=== PATIENT | male | born 1945 | race Caucasian/White ===

== ENCOUNTER 2018-07-01 00:39 | Observation (INO) ==
[2018-07-01] MEDS ORDERED: Aspirin 81 MG TAB.CHEW PO ONE (00:52)
--- NOTE | 2018-07-01 01:16 | Emergency Department Note ---
Disposition Clinical Impression: Chest tightness Disposition: Still a Patient Condition: Fair Time of Disposition: 02:34 Chest Pain HPI - General Chief Complaint: ED Chest Pain Stated Complaint: chest pain Time Seen by Provider: 07/01/18 00:51 Source: patient Limitations: no limitations Vital Signs Reviewed: Yes Nursing Notes Reviewed: Yes - History of Present Illness HPI Narrative: 73-year-old male presents from home with family bedside for evaluation of chest tightness. Described as midsternal. Onset this evening at 20:00. Reminiscent to his prior heart attack years ago. Chest pain is minimal at this time. Improved with belching and improved after 324 mg aspirin. Unchanged with exertion or with rest. His pain is nonradiating. He has no associated nausea or vomiting. He did have some mild dyspnea unchanged with exertion. No diaphoresis. PMH: Hypertension, hyperlipidemia, CAD with ACS status post stent 11 years ago. He has had no recent cardiac testing. Habits: current everyday smoker. ROS: Positive: Chest tightness, shortness of breath Negative: Fever, chills, nausea, vomiting, palpitations, dyspnea, diaphoresis, unusual back pain, cough Severity scale (1-10): 3 - Related Data Home Medications Medication Instructions Recorded Confirmed Alprazolam [Xanax] 0.25 mg PO TID 10/05/14 07/01/18 Aspirin Enteric Coated [Aspirin EC] 81 mg PO QAM 10/05/14 07/01/18 Clopidogrel [Plavix] 75 mg PO QAM 10/05/14 07/01/18 Lansoprazole [Prevacid] 30 mg PO DAILY 10/05/14 07/01/18 Lisinopril [Zestril] 20 mg PO QAM 10/05/14 07/01/18 Metoprolol [Lopressor] 50 mg PO BID 10/05/14 07/01/18 Pravastatin Sodium [Pravachol] 40 mg PO QPM 10/05/14 07/01/18 Allergies Allergy/AdvReac Type Severity Reaction Status Date / Time No Known Allergies Allergy Verified 03/29/17 07:22 All systems ED: reviewed and negative except as stated. Review of Systems: As Per HPI Chest Pain PMH - Past Medical History Medical history: Reports: coronary artery disease, GERD, myocardial infarction, other Surgical history: Reports: no surgical history Psychiatric history: Reports: no psych history - Social History Smoking Status: Current every day smoker Alcohol use: Reports: rarely Drug use: Reports: none Physical Exam Vital Signs Reviewed General: Patient is alert, oriented, and in no acute distress. Head: atraumatic, normocephalic Eye: normal appearance, PERRL, EOMI, no scleral icterus, no conjunctival inj ection ENT: mucous membranes moist, normal external ear exam Neck: normal inspection, trachea midline, full ROM Chest: normal inspection, symmetric chest rise Respiratory: Good respiratory effort. Bilateral breath sounds are clear without wheezing, crackles, or rhonchi. Cardiovascular: Regular rate and rhythm. No clicks, rubs, gallops, or murmors. Normal heart sounds. Radial pulses 2/4 and equal bilaterally. No pedal edema.. Nontender to palpation. Abdomen: Bowel sounds present normoactive. Abdomen is soft, nondistended, and nontender. No guarding or rebound. No organomegaly noted. Musculoskeletal: Spontaneously moving all extremities. Skin: warm, dry, intact. Neuro: GCS 15. No focal neurologic deficits observed. Psych: Patient's affect is appropriate for situation. - General Limitations: no limitations General appearance: alert, in no apparent distress Course Course Narrative: EKG dated 01 jul 2018 at 00:48 interpreted as sinus rhythm with rate of 81. MS 135, QRS 84, QTc 423. Normal axis. Nonspecific ST-T changes. Compared to previous dated 03/26/2017 showing no acute ischemic changes or comparison. Chest x-ray is unremarkable. EKG shows no acute ischemic changes. Lab work is unremarkable. Heart score 5. Concerned as patient's symptoms feel identical to his previous heart attack. He is agreeable to admission for continued evaluation. I discussed the patient with the admitting hospitalist, Dr. Stacy, who agrees to accept the patient for continued evaluation monitoring. Chest X-Ray 07/01/18 00:52 IMPRESSION: No acute cardiopulmonary abnormality. D/ / Valentino Whitmore MD / Valentino Whitmore MD Interpreting Provider: Valentino Whitmore MD Vital Signs Temperature 98.1 F 07/01/18 00:42 Pulse Rate 90 07/01/18 00:42 Respiratory Rate 16 07/01/18 00:42 Blood Pressure 167/76 07/01/18 00:42 O2 Sat by Pulse Oximetry 97 07/01/18 00:42 Temperature 98.1 F 07/01/18 00:42 Pulse Rate 74 07/01/18 03:22 Respiratory Rate 18 07/01/18 03:22 Blood Pressure 123/74 07/01/18 03:22 O2 Sat by Pulse Oximetry 95 07/01/18 03:22 Oxygen Delivery Oxygen Delivery Room Air Chest Pain - Lab Data Result diagrams: 07/01/18 08:26 07/01/18 08:26 Lab Results 07/01/18 07/01/18 07/01/18 Range/Units 01:05 01:05 01:05 WBC 13.3 H (4.3-11.1) K/mcL RBC 5.57 H (4.19-5.50) M/mcL Hgb 12.9 (12.9-16.9) g/dL Hct 41.4 (37.5-50.1) % MCV 74.3 L (83.0-100.0) fL MCH 23.2 L (28.0-33.3) pg MCHC 31.2 L (31.6-35.5) g/dL RDW 20.3 H (11.5-14.5) % Plt Count 289 (140-400) K/mcL MPV 9.7 (9.4-12.4) fL Immature Gran % 0.4 (0-4) % Seg Neutrophils % 64.1 % Lymphocytes % 19.9 % Monocytes % 10.7 % Eosinophils % 4.1 % Basophils % 0.8 % Neutrophils # 8.5 (1.6-8.9) K/mcL Lymphocytes # 2.7 (0.6-4.6) K/mcL Monocytes # 1.4 H (0.0-1.3) K/mcL Eosinophils # 0.6 (0.0-0.6) K/mcL Basophils # 0.1 (0.0-0.2) K/mcL PT 11.9 (9.4-12.1) Seconds INR 1.1 APTT 28.0 (26.0-36.0) Seconds Sodium 139 (136-145) mEq/L Potassium 4.0 (3.5-5.1) mEq/L Chloride 104 (98-107) mEq/L Carbon Dioxide 23 (23-29) mEq/L BUN 20 (8-23) mg/dL Creatinine 1.34 H (0.70-1.30) mg/dL Est GFR ( Amer) > 60 (> 60) Est GFR (Non-Af Amer) 52 L (> 60) BUN/Creatinine Ratio 15 (6-26) Glucose 123 H (70-105) mg/dL Calculated Osmolality 292 (280-300) Calcium 9.3 (8.6-10.3) mg/dL Troponin I < 0.03 (< 0.04) ng/mL Urine Color (Yellow) Urine Clarity (Clear) Urine pH (5.0-8.0) pH Units Ur Specific [place] (1.010-1.025) Urine Protein (Neg-Trace) mg/dL Urine Glucose (UA) (Normal) mg/dL Urine Ketones (Negative) mg/dL Urine Blood (Negative) Urine Nitrite (Negative) Urine Bilirubin (Negative) Urine Urobilinogen (Normal) mg/dL Ur Leukocyte Esterase (Negative) Urine Microscopic RBC (0-3) per hpf Urine Microscopic WBC (0-3) per hpf Ur Squamous Epith Cells (None-Few) per lpf Urine Bacteria (None-Few) per hpf Hyaline Casts (None-Few) per lpf Ur Culture Indicated? (NO) 07/01/18 Range/Units 02:20 WBC (4.3-11.1) K/mcL RBC (4.19-5.50) M/mcL Hgb (12.9-16.9) g/dL Hct (37.5-50.1) % MCV (83.0-100.0) fL MCH (28.0-33.3) pg MCHC (31.6-35.5) g/dL RDW (11.5-14.5) % Plt Count (140-400) K/mcL MPV (9.4-12.4) fL Immature Gran % (0-4) % Seg Neutrophils % % Lymphocytes % % Monocytes % % Eosinophils % % Basophils % % Neutrophils # (1.6-8.9) K/mcL Lymphocytes # (0.6-4.6) K/mcL Monocytes # (0.0-1.3) K/mcL Eosinophils # (0.0-0.6) K/mcL Basophils # (0.0-0.2) K/mcL PT (9.4-12.1) Seconds INR APTT (26.0-36.0) Seconds Sodium (136-145) mEq/L Potassium (3.5-5.1) mEq/L Chloride (98-107) mEq/L Carbon Dioxide (23-29) mEq/L BUN (8-23) mg/dL Creatinine (0.70-1.30) mg/dL Est GFR ( Amer) (> 60) Est GFR (Non-Af Amer) (> 60) BUN/Creatinine Ratio (6-26) Glucose (70-105) mg/dL Calculated Osmolality (280-300) Calcium (8.6-10.3) mg/dL Troponin I (< 0.04) ng/mL Urine Color Yellow (Yellow) Urine Clarity Cloudy A (Clear) Urine pH 6.0 (5.0-8.0) pH Units Ur Specific [place] 1.014 (1.010-1.025) Urine Protein Trace (Neg-Trace) mg/dL Urine Glucose (UA) Normal (Normal) mg/dL Urine Ketones Trace H (Negative) mg/dL Urine Blood Negative (Negative) Urine Nitrite Negative (Negative) Urine Bilirubin Negative (Negative) Urine Urobilinogen Normal (Normal) mg/dL Ur Leukocyte Esterase Negative (Negative) Urine Microscopic RBC 5-15 H (0-3) per hpf Urine Microscopic WBC 5-15 H (0-3) per hpf Ur Squamous Epith Cells Many H (None-Few) per lpf Urine Bacteria None Seen (None-Few) per hpf Hyaline Casts Few (None-Few) per lpf Ur Culture Indicated? YES A (NO) Heart Score - Score History: Slightly Suspicious EKG: Non Specific repolarisation Disturbance Age: Greater than 65 Risk Factors: Equal/Greater than 3 risk factor or history of atherosclerotic disease Troponin: Less than normal limit HEART Score Total: 5 Attestation Statement - Attestation Attestation: Dr. Butcher note: Patient seen in conjunction with emergency medicine resident Dr. Augie Green. Please see his charting for complete documentation. I spent [id number] time with the patient and agree with patient's treatment and disposition. Patient has no pain at the time of my evaluation but had chest pain at rest within the last couple hours described as diffuse chest tightness that did not radiate. He had no jaw pain or arm pain. The last time he had a pain like this for patient was in approximately 2007 at the time of his last heart attack at which time he had stents placed. EKG and blood work understandable unremarkable. Patient admitted pain-free and has been given aspirin. No acute injury pattern noted on EKG.
[2018-07-01 01:26] LABS: INR 1.1; Prothrombin Time 11.9 Seconds (9.4-12.1)
[2018-07-01 01:27] LABS: Basophils # 0.1 K/mcL (0.0-0.2); Basophils % 0.8 %; Eosinophils # 0.6 K/mcL (0.0-0.6); Eosinophils % 4.1 %; Hematocrit 41.4 % (37.5-50.1); Hemoglobin 12.9 g/dL (12.9-16.9); Immature Granulocytes % 0.4 % (0-4); Lymphocytes # 2.7 K/mcL (0.6-4.6); Lymphocytes % 19.9 %; Mean Corpuscular HGB Conc 31.2 g/dL (31.6-35.5); Mean Corpuscular Hemoglobin 23.2 pg (28.0-33.3); Mean Corpuscular Volume 74.3 fL (83.0-100.0); Mean Platelet Volume 9.7 fL (9.4-12.4); Monocytes # 1.4 K/mcL (0.0-1.3); Monocytes % 10.7 %; Neutrophils # 8.5 K/mcL (1.6-8.9); Platelet Count 289 K/mcL (140-400); Red Blood Count 5.57 M/mcL (4.19-5.50); Red Cell Distribution Width 20.3 % (11.5-14.5); Segmented Neutrophils % 64.1 %
[2018-07-01 01:38] LABS: BUN/Creatinine Ratio 15 (6-26); Blood Urea Nitrogen 20 mg/dL (8-23); Calcium 9.3 mg/dL (8.6-10.3); Carbon Dioxide 23 mEq/L (23-29); Chloride 104 mEq/L (98-107); Glucose 123 mg/dL (70-105); Osmolality,Calculated 292 (280-300); Sodium 139 mEq/L (136-145); eGFR For Non-African Americans 52 (> 60)
[2018-07-01 01:39] LABS: Troponin I < 0.03 ng/mL (< 0.04)
[2018-07-01 02:35] LABS: Bilirubin,Urine Negative (Negative); Blood,Urine Negative (Negative); Clarity,Urine Cloudy (Clear); Color,Urine Yellow (Yellow); Glucose,Urine (UA) Normal (Normal); Ketones,Urine Trace mg/dL (Negative); Leukocyte Esterase,Urine Negative (Negative); Nitrite,Urine Negative (Negative); Protein,Urine Trace mg/dL (Neg-Trace); Specific Gravity,Urine 1.014 (1.010-1.025); Urobilinogen,Urine Normal (Normal)
[2018-07-01 02:38] LABS: Bacteria,Urine None Seen per hpf (None-Few); Squamous Epithelial Cell,Urine Many per lpf (None-Few)
[2018-07-01] MEDS ORDERED: 0.9 % Sodium Chloride 500 ML IVC ONE (02:52)
[2018-07-01 03:19] LABS: Hyaline Casts,Urine Few per lpf (None-Few)
[2018-07-01] MEDS ORDERED: Naloxone 0.4 MG/ML INJ IVP PRN (05:31)
--- NOTE | 2018-07-01 05:54 | Internal Med History&Physical ---
<PeterAugie Trev - Last Filed: 07/01/18 06:40> Date of Encounter: 07/01/18 Internal Medicine - H&P: HPI History of present illness: Mr. Garzon is a 73 year old male Internal Medicine - H&P: Meds Alprazolam [Xanax] 0.25 mg PO TID 10/05/14 [History] Aspirin Enteric Coated [Aspirin EC] 81 mg PO QAM 10/05/14 [History] Clopidogrel [Plavix] 75 mg PO QAM 10/05/14 [History] Lansoprazole [Prevacid] 30 mg PO DAILY 10/05/14 [History] Lisinopril [Zestril] 20 mg PO QAM 10/05/14 [History] Metoprolol [Lopressor] 50 mg PO BID 10/05/14 [History] Pravastatin Sodium [Pravachol] 40 mg PO QPM 10/05/14 [History] Allergy/AdvReac Type Severity Reaction Status Date / Time No Known Allergies Allergy Verified 03/29/17 07:22 All Systems PM: A 10-system review of systems was performed and is negative for pertinent findings except as documented above in the HPI. - Constitutional Vitals: Temp Pulse Resp BP Pulse Ox 98.1 F 74 18 123/74 95 07/01/18 00:42 07/01/18 03:22 07/01/18 03:22 07/01/18 03:22 07/01/18 03:22 Internal Med - H&P Results - Labs CBC & Chem 7: 07/01/18 01:05 07/01/18 01:05 Labs: Short CBC 07/01/18 Range/Units 01:05 WBC 13.3 H (4.3-11.1) K/mcL Hgb 12.9 (12.9-16.9) g/dL Hct 41.4 (37.5-50.1) % Plt Count 289 (140-400) K/mcL Neutrophils # 8.5 (1.6-8.9) K/mcL BMP 07/01/18 01:05 Sodium 139 Potassium 4.0 Chloride 104 Carbon Dioxide 23 BUN 20 Creatinine 1.34 H Glucose 123 H Calcium 9.3 Cardiac Enzymes 07/01/18 Range/Units 01:05 Troponin I < 0.03 (< 0.04) ng/mL Urine 07/01/18 Range/Units 02:20 Urine Color Yellow (Yellow) Urine Clarity Cloudy A (Clear) Urine pH 6.0 (5.0-8.0) pH Units Ur Specific [place] 1.014 (1.010-1.025) Urine Protein Trace (Neg-Trace) mg/dL Urine Glucose (UA) Normal (Normal) mg/dL - Impressions ITS Impressions Chest X-Ray 07/01/18 00:52 IMPRESSION: No acute cardiopulmonary abnormality. D/ / Valentino Whitmore MD / Valentino Whitmore MD Interpreting Provider: Valentino Whitmore MD - Time Spent With Patient Total time spent is greater than 50% in coordination of care (as documented) at patient's floor/unit and/or counseling patient: <Geni Stacy - Last Filed: 07/01/18 07:46> Date of Encounter: 07/01/18 Time of Encounter: 05:46 Internal Medicine - H&P: HPI Chief complaint: Chest pain History of present illness: Mr. Garzon is a 73 year old male with a past medical history of coronary artery disease, [place] status post stent placement, GERD and hypertension who presented to the ED with chief complaint of chest pain. Patient states that around 8:30 this evening while playing cards he developed acute sudden onset substernal nonradiating chest pain described as a pressure-like sensation. Patient reports that symptoms were similar to when he had his previous AZ in 2007. Symptoms lasted for approximately 2-1/2 hours and resolved just prior to arrival to the hospital. No associated shortness of breath, nausea, vomiting, diaphoresis or lightheadedness. Patient did report that he had just gotten back with his family from [place] prior. Patient continues to smoke a pack a day since his heart attack. No reports of fever, chills, shortness of breath, abdominal pain or diarrhea. On arrival vitals were stable. Patient received loading dose of aspirin in route. Laboratory workup was notable for a leukocytosis of 13.3 and creatinine of 1.34 which is above his baseline. On my assessment patient was lying in bed in no acute distress and chest pain-free. States he is feeling fine. Past Med Surg Social Fam HX - Past Medical History Medical history: coronary artery disease, myocardial infarction, other Additional medical history: cardiac stent Psychiatric history: no psych history - Past Surgical History Surgical History: orthopedic, other Additional surgical history: 2008 cardiac stentHOULDER SX - LEFT - Social History Smoking Status: Current every day smoker Packs per day: 1 Smokeless Tobacco Status: No Alcohol use: rarely Drug use: none - Family History Mother Hx Family Cancer: Yes (Colon CA) All Systems PM: A 10-system review of systems was performed and is negative for pertinent findings except as documented above in the HPI. - Constitutional Constitutional: no chills, no fever(s), no night sweats - EENT Eyes: no change in vision, no discharge, no pain, no photophobia Ears: no ear discharge, no ear pain, no tinnitus Nose, mouth and throat: no dysphagia, no nasal discharge, no neck pain, no sore throat - Cardiovascular Cardiovascular ROS IM: no chest pain, no diaphoresis, no dyspnea, no lightheadedness, no palpitations, no syncope - Respiratory Respiratory: no cough, no dyspnea, no wheezing, no excessive phlegm production - Gastrointestinal Gastrointestinal: no abdominal pain, no diarrhea, no hematemesis, no hematochezia, no melena, no nausea, no vomiting - Musculoskeletal Musculoskeletal ROS IM: no numbness, no tingling - Integumentary Integumentary IM: no rash, no unusual bruising - Neurological Neurological ROS: no confusion, no convulsions, no focal weakness, no numbness, no tingling, no tremor(s) - Hematologic/Lymphatic Hematologic/Lymphatic: no easy bruising - Constitutional Vitals: Temp Pulse Resp BP Pulse Ox 98.1 F 74 18 123/74 95 07/01/18 00:42 07/01/18 03:22 07/01/18 03:22 07/01/18 03:22 07/01/18 03:22 Exam: General: Alert and oriented Skin:Normal color, no rash, no lesions. HEENT:EOM, pupils equal, round and reactive. Cardiovascular:Normal S1 & S2, no rubs, murmurs or gallops. No JVD. Pulse regular. Lungs:Normal breath sounds, no wheezes or crackles. Abdomen:Soft, non-tender, no rigidity. Extremities:No deformity, no edema or tenderness, no joint swelling or clubbing. Neurological:Normal cognition and motor skills. Pulses:Carotid and radial pulses normal +2. Rest of the physical exam is non contributory Internal Med - H&P Results - Labs CBC & Chem 7: 07/01/18 01:05 07/01/18 01:05 Labs: Short CBC 07/01/18 Range/Units 01:05 WBC 13.3 H (4.3-11.1) K/mcL Hgb 12.9 (12.9-16.9) g/dL Hct 41.4 (37.5-50.1) % Plt Count 289 (140-400) K/mcL Neutrophils # 8.5 (1.6-8.9) K/mcL BMP 07/01/18 01:05 Sodium 139 Potassium 4.0 Chloride 104 Carbon Dioxide 23 BUN 20 Creatinine 1.34 H Glucose 123 H Calcium 9.3 Cardiac Enzymes 07/01/18 Range/Units 01:05 Troponin I < 0.03 (< 0.04) ng/mL Urine 07/01/18 Range/Units 02:20 Urine Color Yellow (Yellow) Urine Clarity Cloudy A (Clear) Urine pH 6.0 (5.0-8.0) pH Units Ur Specific [place] 1.014 (1.010-1.025) Urine Protein Trace (Neg-Trace) mg/dL Urine Glucose (UA) Normal (Normal) mg/dL - Impressions ITS Impressions Chest X-Ray 07/01/18 00:52 IMPRESSION: No acute cardiopulmonary abnormality. D/ / Valentino Whitmore MD / Valentino Whitmore MD Interpreting Provider: Valentino Whitmore MD - Assessment and Plan (1) Chest tightness Current Visit: Yes Status: Acute Assessment and plan: 73-year-old male with history of coronary artery disease status post stents and chronic one pack-a-day smoker presenting with substernal chest pressure similar in presentation to prior AZ. Initial troponin was negative. EKG reviewed and shows no evidence of ischemic changes. Patient received loading dose of aspirin by squad. Currently chest pain-free. Of note patient had a nuclear stress test in 2014 which was negative for ischemia. -Trend troponin -Telemetry -We will obtain echocardiogram -If troponins negative 2, would recommend repeat nuclear stress test. (2) Coronary artery disease Current Visit: No Status: Chronic Assessment and plan: His trip coronary artery disease in 2007 and [place] status post stent placement. Currently on aspirin, statin, ERIN inhibitor, Plavix and beta luh. -Continue medical management. Qualifiers: Coronary Disease-Associated Artery/Lesion type: unspecified vessel or lesion type Associated angina: angina presence unspecified Qualified Code(s): I25.10 - Atherosclerotic heart disease of [place] coronary artery without angina pectoris (3) Acute kidney injury Current Visit: Yes Status: Acute Assessment and plan: Patient presenting with acute kidney injury with a creatinine of 1.34. Baseline appears to be around 1 and was normal earlier in February of this year. Patient denies any clinical history to suggest decreased intravascular volume. He is on an ERIN inhibitor. Suspect prerenal. Patient received loading bolus in the ED. We will continue on gentle hydration and repeat chemistry. Hold ERIN inhibitor for now. (4) Tobacco use disorder Current Visit: No Status: Chronic Assessment and plan: She continues to smoke 1 pack per day since his heart attack in 2007. Counseled on smoking cessation. (5) DVT prophylaxis Current Visit: Yes Status: Acute Assessment and plan: Subcutaneous heparin - Time Spent With Patient Total time spent is greater than 50% in coordination of care (as documented) at patient's floor/unit and/or counseling patient:
[2018-07-01] MEDS: 0.9 % Sodium Chloride 1,000 ML IVC SCH ×2 (05:55→20:21)
[2018-07-01] MEDS: *HR* Heparin 5,000 UNIT/ML VIAL SQ SCH ×3 (06:18→20:21)
[2018-07-01] MEDS: Aspirin Enteric Coated 81 MG Tablet PO SCH (07:53)
[2018-07-01 09:18] LABS: Basophils # 0.1 K/mcL (0.0-0.2); Basophils % 0.9 %; Eosinophils # 0.8 K/mcL (0.0-0.6); Eosinophils % 6.4 %; Hematocrit 39.5 % (37.5-50.1); Immature Granulocytes % 0.3 % (0-4); Lymphocytes # 2.4 K/mcL (0.6-4.6); Lymphocytes % 20.4 %; Mean Corpuscular HGB Conc 30.4 g/dL (31.6-35.5); Mean Corpuscular Volume 75.8 fL (83.0-100.0); Mean Platelet Volume 10.4 fL (9.4-12.4); Monocytes # 1.2 K/mcL (0.0-1.3); Monocytes % 9.9 %; Neutrophils # 7.3 K/mcL (1.6-8.9); Platelet Count 278 K/mcL (140-400); Red Blood Count 5.21 M/mcL (4.19-5.50); Red Cell Distribution Width 20.5 % (11.5-14.5); Segmented Neutrophils % 62.1 %
[2018-07-01 09:54] LABS: Alanine Aminotransferase 12 Units/L (7-52); Albumin 4.1 g/dL (3.5-5.7); Albumin/Globulin Ratio 1.6 (1.1-2.2); Alkaline Phosphatase 50 Units/L (34-104); Aspartate Amino Transferase 14 Units/L (13-39); BUN/Creatinine Ratio 18 (6-26); Bilirubin,Total 0.5 mg/dL (0.3-1.0); Blood Urea Nitrogen 17 mg/dL (8-23); Carbon Dioxide 25 mEq/L (23-29); Chloride 105 mEq/L (98-107); Chol/HDL Ratio 3.1 (0-4.9); Cholesterol 111 mg/dL (< 200); Globulin 2.6 g/dL (2.4-3.5); Glucose 98 mg/dL (70-105); HDL Cholesterol 36 mg/dL (40-59); LDL Cholesterol,Calculated 55 mg/dL (0-99); Osmolality,Calculated 290 (280-300); Potassium 4.5 mEq/L (3.5-5.1); Sodium 139 mEq/L (136-145); Total Protein 6.7 g/dL (6.4-8.9); Triglycerides 99 mg/dL (< 150); eGFR For Non-African Americans > 60 (> 60)
[2018-07-01 09:57] LABS: Estimated Average Glucose 134 mg/dl; Hemoglobin A1C 6.3 %
--- NOTE | 2018-07-01 10:24 | Internal Med Progress Note ---
Hospitalist Progress Note - Encounter Date of Encounter: 07/01/18 Time of Encounter: 09:45 - Subjective Interval History: Mr. Garzon is a 73 year old male with a past medical history of coronary artery disease, [place] status post stent placement in 2007, GERD and hypertension who presented to the ED with chief complaint of chest pain. Patient states that ar ound 8:30 PM while playing cards he developed acute sudden onset substernal nonradiating chest pain described as a pressure-like sensation and 6/10 in severity. Patient reports that symptoms were similar to when he had his previous ND in 2007. Symptoms lasted for approximately 3 to 3 1/2 hours and resolved just prior to arrival to the hospital. 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 His his serial troponin came back as negative. He denied any more active chest pain now. - Exam Vitals: Temp Pulse Resp BP Pulse Ox 97.7 F 75 15 148/81 91 07/01/18 07:14 07/01/18 07:14 07/01/18 07:14 07/01/18 07:14 07/01/18 07:56 Exam: Gen: Alert, awake, Oriented to time,place and person Chest: Diminished breath sounds B/L, No wheezing, No crackles, No rales Heart: S1S2+ RRR No murmurs Abd: Soft, NT, BS +, No organomegaly Ext: No edema, pulses are palpable, No calf tenderness Neuro : A,A,O x4 Skin: No rash. - Assessment and Plan (1) Chest tightness Current Visit: Yes Status: Acute Assessment and Plan: So far negative torp no acute ischemic changes in EKG cont on tele cont home med ASA, Plavix, Metoprolol and statin since he is high risk for ACS, will do stress test in AM Waiting for 2 D Echo (2) Tobacco use disorder Current Visit: No Status: Chronic Assessment and Plan: He continues to smoke 1 pack per day since his heart attack in 2007. Counseled on smoking cessation. (3) Coronary artery disease Current Visit: No Status: Chronic Assessment and Plan: s/p PCI in 2007 cont home med ASA , Plavix, statin and Metoprolol (4) Acute kidney injury Current Visit: Yes Status: Acute Assessment and Plan: Due to dehydration cont gentle hydration (5) DVT prophylaxis Current Visit: Yes Status: Acute Assessment and Plan: Subcutaneous heparin - Time Spent with Patient Total time spent is greater than 50% in coordination of care (as documented) at patient's floor/unit and/or counseling patient: Internal Medicine: Result - Labs CBC & Chem 7: 07/01/18 08:26 07/01/18 08:26 Labs: Short CBC 07/01/18 07/01/18 Range/Units 01:05 08:26 WBC 13.3 H 11.7 H (4.3-11.1) K/mcL Hgb 12.9 12.0 L (12.9-16.9) g/dL Hct 41.4 39.5 (37.5-50.1) % Plt Count 289 278 (140-400) K/mcL Neutrophils # 8.5 7.3 (1.6-8.9) K/mcL BMP 07/01/18 07/01/18 01:05 08:26 Sodium 139 139 Potassium 4.0 4.5 Chloride 104 105 Carbon Dioxide 23 25 BUN 20 17 Creatinine 1.34 H 0.96 Glucose 123 H 98 Calcium 9.3 9.0 Cardiac Enzymes 07/01/18 07/01/18 Range/Units 01:05 08:26 Troponin I < 0.03 < 0.03 (< 0.04) ng/mL Liver Function 07/01/18 Range/Units 08:26 Total Bilirubin 0.5 (0.3-1.0) mg/dL AST 14 (13-39) Units/L ALT 12 (7-52) Units/L Alkaline Phosphatase 50 (34-104) Units/L Albumin 4.1 (3.5-5.7) g/dL Urine 07/01/18 Range/Units 02:20 Urine Color Yellow (Yellow) Urine Clarity Cloudy A (Clear) Urine pH 6.0 (5.0-8.0) pH Units Ur Specific [place] 1.014 (1.010-1.025) Urine Protein Trace (Neg-Trace) mg/dL Urine Glucose (UA) Normal (Normal) mg/dL - ABG Interpretation ABG results: PT/INR, D-dimer PT 11.9 Seconds (9.4-12.1) 07/01/18 01:05 - Impressions Impressions Chest X-Ray 07/01/18 00:52 IMPRESSION: No acute cardiopulmonary abnormality. D/ / Valentino Whitmore MD / Valentino Whitmore MD Interpreting Provider: Valentino Whitmore MD Consult Discharge Plan - Plan Referrals: Tacos Pierce DO [Primary Care Provider] - (Unable to make an appointment. Please contact our offices for an appointment ) (3) Coronary artery disease Qualifiers: Coronary Disease-Associated Artery/Lesion type: unspecified vessel or lesion type Associated angina: angina presence unspecified Qualified Code(s): I25.10 - Atherosclerotic heart disease of [place] coronary artery without angina pectoris
[2018-07-02] MEDS: *HR* Heparin 5,000 UNIT/ML VIAL SQ SCH (04:45)
[2018-07-02] MEDS ORDERED: hydroCHLOROthiazide 25 MG TABLET PO ONE (05:44)
[2018-07-02] MEDS ORDERED: Regadenoson 0.4 MG/5 ML SYRINGE IVP ONE (06:40)
[2018-07-02] MEDS: Aspirin Enteric Coated 81 MG Tablet PO SCH (08:40)
[2018-07-02] MEDS ORDERED: ALPRAZolam 0.25 MG TABLET PO SCH (09:00)
[2018-07-02 11:29] VITALS: BP 167/82
--- NOTE | 2018-07-02 11:49 | Discharge Summary ---
- NOTES TO OUTPATIENT PROVIDER Notes to Outpatient Provider: f/u with PCP in one week. f/u with [employer] in one week.. You do need to go for out pt stress test. Date of Encounter: 07/02/18 Time of Encounter: 11:40 - Discharge Diagnosis (1) Chest tightness Priority: Primary Status: Acute (2) Acute kidney injury Priority: Secondary Status: Acute (3) Coronary artery disease Priority: Secondary Status: Chronic Qualifiers: Coronary Disease-Associated Artery/Lesion type: unspecified vessel or lesion type Associated angina: angina presence unspecified Qualified Code(s): I25.1 0 - Atherosclerotic heart disease of [place] coronary artery without angina pectoris (4) Tobacco use disorder Priority: Secondary Status: Chronic (5) DVT prophylaxis Priority: Secondary Status: Acute Hospital course: Mr. Garzon is a 73 year old male with a past medical history of coronary artery disease, [place] status post stent placement in 2007, GERD and hypertension who presented to the ED with chief complaint of chest pain. Patient states that around 8:30 PM while playing cards he developed acute sudden onset substernal nonradiating chest pain described as a pressure-like sensation and 6/10 in severity. Patient reports that symptoms were similar to when he had his previous [place] in 2007. Symptoms lasted for approximately 3 to 3 1/2 hours and resolved just prior to arrival to the hospital. He was admitted in the hospital and placed him on registered nurse step down. His serial troponin came back as negative. He denied any more active chest pain now. Hsi EKG showed NSR and no acute ischemic changes noticed. We are not able to do stress test on him today since his HR was elevated and he needed to take his Metoprolol. Reviewed his 2 D Echo showed preserved LVEF and no septal/wall motion abnormalities noticed. So will d/c him home in stable condition today and recommend to f/u with Cardiology as an out pt for possible stress test and further work up. I counseled the pt to quit smoking. - Time Spent with Patient Total time spent providing and/or coordinating discharge services: - Discharge Medications Prescriptions: New Nicotine Patch [Nicoderm] 14 mg TD DAILY #30 patch.td24 Continued Lansoprazole [Prevacid] 30 mg PO DAILY Alprazolam [Xanax] 0.25 mg PO TID Clopidogrel [Plavix] 75 mg PO QAM Metoprolol [Lopressor] 50 mg PO BID Lisinopril [Zestril] 20 mg PO QAM Aspirin Enteric Coated [Aspirin EC] 81 mg PO QAM Pravastatin Sodium [Pravachol] 40 mg PO QPM Home Medications: Alprazolam [Xanax] 0.25 mg PO TID 10/05/14 [History] Aspirin Enteric Coated [Aspirin EC] 81 mg PO QAM 10/05/14 [History] Clopidogrel [Plavix] 75 mg PO QAM 10/05/14 [History] Lansoprazole [Prevacid] 30 mg PO DAILY 10/05/14 [History] Lisinopril [Zestril] 20 mg PO QAM 10/05/14 [History] Metoprolol [Lopressor] 50 mg PO BID 10/05/14 [History] Pravastatin Sodium [Pravachol] 40 mg PO QPM 10/05/14 [History] Nicotine Patch [Nicoderm] 14 mg TD DAILY #30 patch.td24 07/02/18 [Rx] Allergies/Adverse Reactions: Allergy/AdvReac Type Severity Reaction Status Date / Time No Known Allergies Allergy Verified 03/29/17 07:22 Date of admission: 07/01/18 03:18 Primary care physician: Tacos Pierce - Constitutional Vitals: Temp Pulse Resp BP Pulse Ox 97.9 F 82 16 167/82 92 07/02/18 11:23 07/02/18 11:23 07/02/18 11:23 07/02/18 11:23 07/02/18 11:23 General appearance: Present: A&O X 3, no acute distress, answers questions appropriately Exam: Gen: Alert, awake, Oriented to time,place and person Chest: Diminished breath sounds B/L, No wheezing, No crackles, No rales Heart: S1S2+ RRR No murmurs Abd: Soft, NT, BS +, No organomegaly Ext: No edema, pulses are palpable, No calf tenderness Neuro : Benign findings Skin: No rash. - Patient Status Disposition: Home, Self-Care Condition: Good Overall status at discharge: patient is back to baseline - Discharge Instructions Follow Up With: Tacos Pierce DO [Primary Care Provider] - (Unable to make an appointment. Inder allen contact our offices for an appointment ) Patricio Cardoso MD [Non-Partnered Physician] - (Appointment has been requested.) - Diet and Activity Activity: increase activity as tolerated Diet: low salt diet
--- NOTE | 2018-07-02 22:57 | Electrocardiograph Report ---
[address] [address] Test Date: 2018-07-01 Pat Name: Smith Garzon Department: EXAM5 Room: 3B34 Gender: M Head Of Cytogenetics: : 1945 Requested By: Augie Green Order Number: [id number] Reading MD: Mayda Montano Measurements Intervals [place] Rate: 81 P: 19 LA: 135 QRS: 46 QRSD: 84 T: 68 QT: 364 QTc: 423 Interpretive Statements Sinus rhythm Electronically Signed On 07-02-2018 22:55:44 EDT by Mayda Montano
== END 2018-07-02 12:24 | disposition home or self-care (01) ==
LOC: 3BNU 00:39 → EMEROOARM 00:39 → SUATTDRO 03:18 → 3BNU 03:54
PROVIDERS: ADMIT Internal Medicine; ATTEND Family Medicine

== ENCOUNTER 2020-05-18 09:35 | Inpatient (IN) ==
[2020-05-18] MEDS ORDERED: methylPREDNISolone 125 MG/2 ML VIAL IVP ONE (09:47)
[2020-05-18] MEDS ORDERED: Ipratropium/Albuterol Neb 3 ML IH PRN (09:47)
[2020-05-18] MEDS ORDERED: Isovue-370 500 ML BOTTLE IVP ONE (09:49)
[2020-05-18 10:17] LABS: Hemoglobin 6.8 g/dL (12.9-16.9); Mean Corpuscular Volume 61.5 fL (83.0-100.0)
[2020-05-18 10:19] LABS: Hematocrit 26.5 % (37.5-50.1); Mean Corpuscular HGB Conc 25.7 g/dL (31.6-35.5); Mean Corpuscular Hemoglobin 15.8 pg (28.0-33.3); Nucleated Red Blood Cells 11.6 /100 WBC (0); Platelet Count 234 K/mcL (140-400); Red Blood Count 4.31 M/mcL (4.19-5.50); Red Cell Distribution Width 22.6 % (11.5-14.5); White Blood Count 7.1 K/mcL (4.3-11.1)
[2020-05-18 10:38] LABS: Calcium 7.7 mg/dL (8.6-10.3); Potassium 4.3 mEq/L (3.5-5.1)
[2020-05-18 10:41] LABS: Troponin I 0.15 ng/mL (< 0.04)
[2020-05-18 10:55] LABS: Basophils # 0.1 K/mcL (0.0-0.2); Eosinophils # 0.1 K/mcL (0.0-0.6); Lymphocytes # 0.6 K/mcL (0.6-4.6); Monocytes # 0.4 K/mcL (0.0-1.3); Neutrophils # 5.7 K/mcL (1.6-8.9)
[2020-05-18 10:56] LABS: ABG Base Excess -4 mEq/L (-2 to 3); ABG HCO3 22 mEq/L (21-27); ABG Oxygen Saturation 92 % (95-98); ABG PCO2 39 mmHg (35-45); ABG PH 7.35 pH Units (7.32-7.45); ABG PO2 67 mmHg (85-104); ABG TCO2 23 mEq/L (20-26)
[2020-05-18 10:57] LABS: Anisocytosis 3+ (Not Present); Hypochromasia Present (Not Present); Large Platelets Present (Not Present); Platelet Estimate Normal (Normal)
[2020-05-18 10:58] LABS: Poikilocytosis 1+ (Not Present); Polychromasia 1+ (Not Present)
[2020-05-18 11:09] LABS: Adenovirus Not Detected (Not Detect); Coronavirus 229E Not Detected (Not Detect); Coronavirus HKU1 Not Detected (Not Detect); Coronavirus NL63 Not Detected (Not Detect); Coronavirus OC43 Not Detected (Not Detect)
[2020-05-18 11:10] LABS: Bordetella Pertussis Not Detected (Not Detect); Chlamydophila pneumoniae Not Detected (Not Detect); Human Metapneumovirus Not Detected (Not Detect); Human Rhinovirus/Enterovirus Not Detected (Not Detect); Influenza A Subtype 2009 H1 Not Detected (Not Detect); Influenza B Not Detected (Not Detect); Mycoplasma pneumoniae Not Detected (Not Detect); Parainfluenza Virus 1 Not Detected (Not Detect); Parainfluenza Virus 2 Not Detected (Not Detect); Parainfluenza Virus 3 Not Detected (Not Detect); Parainfluenza Virus 4 Not Detected (Not Detect); Respiratory Syncytial Virus Not Detected (Not Detect)
[2020-05-18 11:11] LABS: SARS-CoV-2 DETECTED (Not Detect)
[2020-05-18] MEDS ORDERED: 0.9 % Sodium Chloride 250 ML ONE (12:24)
[2020-05-18 12:47] LABS: Bacteria,Urine Few per hpf (None-Few); Bilirubin,Urine Negative (Negative); Blood,Urine Negative (Negative); Clarity,Urine Clear (Clear); Color,Urine Yellow (Yellow); Glucose,Urine (UA) Normal (Normal); Hyaline Casts,Urine Few per lpf (None Seen); Ketones,Urine Negative (Negative); Leukocyte Esterase,Urine Negative (Negative); Mucus,Urine Few per lpf (None-Few); Nitrite,Urine Negative (Negative); Protein,Urine 50 mg/dL (Neg-Trace); RBC,Urine 0-3 per hpf (0-3); Specific Gravity,Urine 1.018 (1.010-1.025); Squamous Epithelial Cell,Urine Few per hpf (None-Few); WBC,Urine 15-30 per hpf (0-3)
[2020-05-18] MEDS ORDERED: Ondansetron 4 MG/2 ML VIAL IVP PRN (13:34)
[2020-05-18] MEDS ORDERED: Nicotine 2 MG GUM BC PRN (15:35)
[2020-05-18 16:25] LABS: Albumin 3.9 g/dL (3.5-5.7); Albumin/Globulin Ratio 1.6 (1.1-2.2); Bilirubin,Direct 0.6 mg/dL (0.0-0.2); Bilirubin,Indirect 0.6 mg/dL (0.0-1.0); Bilirubin,Total 1.2 mg/dL (0.3-1.0); Globulin 2.4 g/dL (2.4-3.5); Thyroid Stimulating Hormone 2.825 mcIU/mL (0.340-5.600); Total Protein 6.3 g/dL (6.4-8.9)
[2020-05-18] MEDS ORDERED: *HR* Heparin 5,000 UNIT/ML VIAL SQ SCH (18:00)
[2020-05-18] MEDS: Nicotine 14 MG PATCH.TD24 TD SCH (18:02)
[2020-05-18] MEDS: Pantoprazole 40 MG VIAL IVP SCH (18:03)
[2020-05-18 19:11] LABS: Retculocyte # 0.04 M/mcL (0.05-0.10); Reticulocyte % 0.9 % (1.6-2.8)
[2020-05-19] MEDS: Pantoprazole 40 MG VIAL IVP SCH ×2 (05:06→17:30)
[2020-05-19 06:01] LABS: Hematocrit 31.6 % (37.5-50.1); Hemoglobin 8.6 g/dL (12.9-16.9); Immature Platelets 8.5 % (1.1-6.1); Mean Corpuscular HGB Conc 27.2 g/dL (31.6-35.5); Mean Corpuscular Hemoglobin 17.7 pg (28.0-33.3); Platelet Count 203 K/mcL (140-400); Red Blood Count 4.86 M/mcL (4.19-5.50); Red Cell Distribution Width 26.2 % (11.5-14.5)
[2020-05-19 06:18] LABS: BUN/Creatinine Ratio 35 (6-26); Blood Urea Nitrogen 46 mg/dL (8-23); Calcium 8.2 mg/dL (8.6-10.3); Carbon Dioxide 23 mEq/L (23-29); Chloride 108 mEq/L (98-107); Glucose 204 mg/dL (70-105); Magnesium 2.4 mg/dL (1.6-2.6); Osmolality,Calculated 306 (280-300); Sodium 139 mEq/L (136-145); eGFR For African Americans > 60 (> 60); eGFR For Non-African Americans 53 (> 60)
[2020-05-19] MEDS ORDERED: D5% in Water 1,000 ML IVC PRN (08:06)
[2020-05-19] MEDS ORDERED: Dextrose Gel 15 GM/37.5 ML TUBE PO PRN ×2 (08:06)
[2020-05-19] MEDS ORDERED: *HR* Dextrose 50 % in Water (Vial) 50 ML VIAL IVP PRN (08:06)
[2020-05-19] MEDS ORDERED: Nitroglycerin 0.4 MG TAB.SUBL SL PRN (08:08)
[2020-05-19] MEDS: Aspirin Enteric Coated 81 MG Tablet PO SCH (09:52)
[2020-05-19] MEDS: ALPRAZolam 0.5 MG TABLET PO SCH ×4 (09:52→22:55)
[2020-05-19] MEDS: Dexamethasone Sodium Phos/PF 10 MG/ML VIAL IVP SCH (09:52)
[2020-05-19] MEDS: Nicotine 14 MG PATCH.TD24 TD SCH (09:53)
[2020-05-19 10:05] LABS: Acetaminophen < 10 mcg/mL (10-20); Albumin 3.6 g/dL (3.5-5.7); Albumin/Globulin Ratio 1.6 (1.1-2.2); Alkaline Phosphatase 75 Units/L (34-104); Bilirubin,Direct 0.6 mg/dL (0.0-0.2); Bilirubin,Indirect 0.6 mg/dL (0.0-1.0); Bilirubin,Total 1.2 mg/dL (0.3-1.0); Globulin 2.3 g/dL (2.4-3.5); Lactate Dehydrogenase 484 Units/L (140-271); Total Protein 5.9 g/dL (6.4-8.9)
[2020-05-19 10:18] LABS: Alanine Aminotransferase 1777 Units/L (7-52); Aspartate Amino Transferase 1060 Units/L (13-39)
[2020-05-19] MEDS: Insulin LISPRO 300 UNITS/3 ML VIAL SUBQ SCH ×3 (12:38→22:55)
[2020-05-19 14:43] LABS: Creatinine,Urine 88 mg/dL
[2020-05-19 15:29] LABS: Hematocrit 34.2 % (37.5-50.1); Hemoglobin 9.3 g/dL (12.9-16.9)
[2020-05-19] MEDS: Budesonide/Formoterol 160/4.5 1 PUFF INH IH SCH (19:46)
[2020-05-19 20:48] LABS: Hematocrit 36.2 % (37.5-50.1); Hemoglobin 9.6 g/dL (12.9-16.9)
[2020-05-20 04:48] LABS: Basophils % 0.4 %; Red Blood Count 5.15 M/mcL (4.19-5.50)
[2020-05-20 04:50] LABS: Basophils # 0.1 K/mcL (0.0-0.2); Hematocrit 33.5 % (37.5-50.1); Hemoglobin 9.1 g/dL (12.9-16.9); Immature Platelets 10.7 % (1.1-6.1); Lymphocytes # 0.2 K/mcL (0.6-4.6); Lymphocytes % 1.5 %; Mean Corpuscular HGB Conc 27.2 g/dL (31.6-35.5); Mean Corpuscular Hemoglobin 17.7 pg (28.0-33.3); Monocytes # 0.6 K/mcL (0.0-1.3); Monocytes % 4.6 %; Neutrophils # 11.1 K/mcL (1.6-8.9); Nucleated Red Blood Cells 13.9 /100 WBC (0); Platelet Count 192 K/mcL (140-400); Red Cell Distribution Width 26.6 % (11.5-14.5); Segmented Neutrophils % 89.5 %; White Blood Count 12.4 K/mcL (4.3-11.1)
[2020-05-20 05:04] LABS: BUN/Creatinine Ratio 38 (6-26); Blood Urea Nitrogen 33 mg/dL (8-23); Calcium 8.4 mg/dL (8.6-10.3); Carbon Dioxide 25 mEq/L (23-29); Chloride 103 mEq/L (98-107); Glucose 177 mg/dL (70-105); Magnesium 2.3 mg/dL (1.6-2.6); Osmolality,Calculated 294 (280-300); Phosphorous 1.7 mg/dL (2.7-4.5); Potassium 4.1 mEq/L (3.5-5.1); Sodium 136 mEq/L (136-145); eGFR For African Americans > 60 (> 60); eGFR For Non-African Americans > 60 (> 60)
[2020-05-20] MEDS: Pantoprazole 40 MG VIAL IVP SCH (05:06)
[2020-05-20 05:19] LABS: Anisocytosis 3+ (Not Present); Hypochromasia Present (Not Present); Platelet Estimate Normal (Normal); Polychromasia 1+ (Not Present)
[2020-05-20 05:25] LABS: Albumin 3.4 g/dL (3.5-5.7); Albumin/Globulin Ratio 1.4 (1.1-2.2); Bilirubin,Direct 0.5 mg/dL (0.0-0.2); Bilirubin,Indirect 0.5 mg/dL (0.0-1.0); Globulin 2.5 g/dL (2.4-3.5); Total Protein 5.9 g/dL (6.4-8.9)
[2020-05-20] MEDS: Budesonide/Formoterol 160/4.5 1 PUFF INH IH SCH ×2 (07:39→20:05)
[2020-05-20] MEDS: Insulin LISPRO 300 UNITS/3 ML VIAL SUBQ SCH ×4 (08:52→20:50)
[2020-05-20] MEDS: Dexamethasone Sodium Phos/PF 10 MG/ML VIAL IVP SCH (08:55)
[2020-05-20] MEDS: Nicotine 14 MG PATCH.TD24 TD SCH (08:55)
[2020-05-20] MEDS: ALPRAZolam 0.5 MG TABLET PO SCH ×4 (08:55→20:35)
[2020-05-20] MEDS ORDERED: Dexamethasone Sodium Phos/PF 10 MG/ML VIAL IVP ONE (09:51)
[2020-05-21 06:50] LABS: Hematocrit 36.8 % (37.5-50.1); Hemoglobin 9.8 g/dL (12.9-16.9)
[2020-05-21] MEDS: Budesonide/Formoterol 160/4.5 1 PUFF INH IH SCH ×2 (07:23→19:56)
[2020-05-21] MEDS: Insulin LISPRO 300 UNITS/3 ML VIAL SUBQ SCH ×4 (07:29→20:05)
[2020-05-21] MEDS: Nicotine 14 MG PATCH.TD24 TD SCH (08:55)
[2020-05-21] MEDS: ALPRAZolam 0.5 MG TABLET PO SCH ×4 (08:56→20:05)
[2020-05-21] MEDS: Dexamethasone Sodium Phos/PF 10 MG/ML VIAL IVP SCH (08:56)
[2020-05-21] MEDS: lisinopriL 20 MG TABLET PO SCH (08:56)
[2020-05-21] MEDS ORDERED: amLODIPine 5 MG TABLET PO SCH (09:00)
[2020-05-21 09:12] LABS: Alanine Aminotransferase 826 Units/L (7-52); Albumin 3.5 g/dL (3.5-5.7); Albumin/Globulin Ratio 1.5 (1.1-2.2); Alkaline Phosphatase 74 Units/L (34-104); Aspartate Amino Transferase 127 Units/L (13-39); BUN/Creatinine Ratio 38 (6-26); Bilirubin,Direct 0.5 mg/dL (0.0-0.2); Bilirubin,Indirect 0.5 mg/dL (0.0-1.0); Blood Urea Nitrogen 33 mg/dL (8-23); Calcium 8.4 mg/dL (8.6-10.3); Carbon Dioxide 30 mEq/L (23-29); Chloride 103 mEq/L (98-107); Globulin 2.4 g/dL (2.4-3.5); Glucose 163 mg/dL (70-105); Magnesium 2.2 mg/dL (1.6-2.6); Osmolality,Calculated 299 (280-300); Potassium 4.3 mEq/L (3.5-5.1); Sodium 139 mEq/L (136-145); Total Protein 5.9 g/dL (6.4-8.9); eGFR For African Americans > 60 (> 60); eGFR For Non-African Americans > 60 (> 60)
[2020-05-21] MEDS ORDERED: Furosemide 20 MG/2 ML VIAL IVP ONE (13:00)
[2020-05-21 17:22] LABS: Hepatitis B Surface Antigen Nonreactive (Nonreactive)
[2020-05-21 17:57] LABS: Hepatitis A Antibody IgM Nonreactive (Nonreactive)
[2020-05-21 18:02] LABS: Hepatitis C Virus Antibody Nonreactive (Nonreactive)
[2020-05-21 18:08] LABS: Hepatitis B Core IgM Nonreactive (Nonreactive)
[2020-05-22 04:45] LABS: Hemoglobin 9.1 g/dL (12.9-16.9)
[2020-05-22 05:04] LABS: Lactate Dehydrogenase 252 Units/L (140-271)
[2020-05-22 05:06] LABS: Fibrinogen 253 mg/dL (169-393)
[2020-05-22 05:08] LABS: D-Dimer 3566 ng/mLFEU (0-500)
[2020-05-22 05:21] LABS: Ferritin 22 ng/mL (20-250)
[2020-05-22] MEDS: *HR* Enoxaparin 40 MG/0.4 ML SYRINGE SQ SCH (05:25)
[2020-05-22] MEDS: Budesonide/Formoterol 160/4.5 1 PUFF INH IH SCH ×2 (07:46→20:26)
[2020-05-22] MEDS: Insulin LISPRO 300 UNITS/3 ML VIAL SUBQ SCH ×4 (09:31→20:32)
[2020-05-22] MEDS: Furosemide 20 MG/2 ML VIAL IVP SCH (09:32)
[2020-05-22] MEDS: amLODIPine 5 MG TABLET PO SCH (09:32)
[2020-05-22] MEDS: lisinopriL 20 MG TABLET PO SCH (09:33)
[2020-05-22] MEDS: Dexamethasone Sodium Phos/PF 10 MG/ML VIAL IVP SCH (09:33)
[2020-05-22] MEDS: Nicotine 14 MG PATCH.TD24 TD SCH (09:33)
[2020-05-22] MEDS: Aspirin Enteric Coated 81 MG Tablet PO SCH (09:33)
[2020-05-22] MEDS: ALPRAZolam 0.5 MG TABLET PO SCH ×4 (09:33→20:32)
[2020-05-22] MEDS: Doxycycline 100 MG in 0.9 % Sodium Chloride Mini Bag 100 ML IVPB SCH (17:35)
[2020-05-23] MEDS: *HR* Enoxaparin 40 MG/0.4 ML SYRINGE SQ SCH (05:21)
[2020-05-23] MEDS: Doxycycline 100 MG in 0.9 % Sodium Chloride Mini Bag 100 ML IVPB SCH ×2 (05:21→17:03)
[2020-05-23] MEDS: Budesonide/Formoterol 160/4.5 1 PUFF INH IH SCH ×2 (08:20→19:57)
[2020-05-23] MEDS: amLODIPine 5 MG TABLET PO SCH (08:47)
[2020-05-23] MEDS: Dexamethasone Sodium Phos/PF 10 MG/ML VIAL IVP SCH (08:47)
[2020-05-23] MEDS: lisinopriL 20 MG TABLET PO SCH (08:48)
[2020-05-23] MEDS: Nicotine 14 MG PATCH.TD24 TD SCH (08:48)
[2020-05-23] MEDS: ALPRAZolam 0.5 MG TABLET PO SCH ×4 (08:48→21:21)
[2020-05-23] MEDS: Furosemide 20 MG/2 ML VIAL IVP SCH (08:48)
[2020-05-23] MEDS: Insulin LISPRO 300 UNITS/3 ML VIAL SUBQ SCH ×4 (08:49→21:13)
[2020-05-23] MEDS: Aspirin Enteric Coated 81 MG Tablet PO SCH (08:50)
[2020-05-23 09:16] LABS: Basophils % 0.3 %
[2020-05-23 09:18] LABS: Basophils # 0.1 K/mcL (0.0-0.2); Hematocrit 40.1 % (37.5-50.1); Hemoglobin 10.5 g/dL (12.9-16.9); Immature Granulocytes % 1.9 % (0-4); Immature Platelets 14.2 % (1.1-6.1); Lymphocytes # 0.4 K/mcL (0.6-4.6); Lymphocytes % 2.5 %; Mean Corpuscular HGB Conc 26.2 g/dL (31.6-35.5); Mean Corpuscular Hemoglobin 17.5 pg (28.0-33.3); Mean Corpuscular Volume 66.9 fL (83.0-100.0); Monocytes # 0.9 K/mcL (0.0-1.3); Monocytes % 6.2 %; Neutrophils # 13.5 K/mcL (1.6-8.9); Nucleated Red Blood Cells 3.5 /100 WBC (0); Platelet Count 161 K/mcL (140-400); Red Blood Count 5.99 M/mcL (4.19-5.50); Red Cell Distribution Width 28.8 % (11.5-14.5); Segmented Neutrophils % 89.1 %; White Blood Count 15.2 K/mcL (4.3-11.1)
[2020-05-23 09:37] LABS: Alanine Aminotransferase 381 Units/L (7-52); Albumin 3.6 g/dL (3.5-5.7); Albumin/Globulin Ratio 1.3 (1.1-2.2); Alkaline Phosphatase 72 Units/L (34-104); Aspartate Amino Transferase 35 Units/L (13-39); BUN/Creatinine Ratio 51 (6-26); Bilirubin,Direct 0.5 mg/dL (0.0-0.2); Bilirubin,Total 1.5 mg/dL (0.3-1.0); Blood Urea Nitrogen 36 mg/dL (8-23); Carbon Dioxide 30 mEq/L (23-29); Chloride 104 mEq/L (98-107); Globulin 2.7 g/dL (2.4-3.5); Glucose 166 mg/dL (70-105); Magnesium 2.1 mg/dL (1.6-2.6); Osmolality,Calculated 304 (280-300); Phosphorous 3.2 mg/dL (2.7-4.5); Potassium 4.1 mEq/L (3.5-5.1); Sodium 141 mEq/L (136-145); Total Protein 6.3 g/dL (6.4-8.9); eGFR For African Americans > 60 (> 60); eGFR For Non-African Americans > 60 (> 60)
[2020-05-23 10:00] LABS: Anisocytosis 1+ (Not Present); Hypersegmented Neutrophils Present (Not Present)
[2020-05-23 10:01] LABS: Microcytosis Present (Not Present)
[2020-05-23 10:03] LABS: Hypochromasia Present (Not Present); Macrocytosis Present (Not Present); Platelet Estimate Slight Decrease (Normal)
[2020-05-24] MEDS: Doxycycline 100 MG in 0.9 % Sodium Chloride Mini Bag 100 ML IVPB SCH ×2 (05:31→16:29)
[2020-05-24] MEDS: *HR* Enoxaparin 40 MG/0.4 ML SYRINGE SQ SCH (05:32)
[2020-05-24] MEDS: Budesonide/Formoterol 160/4.5 1 PUFF INH IH SCH ×2 (07:34→20:06)
[2020-05-24] MEDS: amLODIPine 5 MG TABLET PO SCH (08:09)
[2020-05-24] MEDS: lisinopriL 20 MG TABLET PO SCH (08:09)
[2020-05-24] MEDS: Aspirin Enteric Coated 81 MG Tablet PO SCH (08:09)
[2020-05-24] MEDS: Nicotine 14 MG PATCH.TD24 TD SCH (08:09)
[2020-05-24] MEDS: ALPRAZolam 0.5 MG TABLET PO SCH ×4 (08:09→20:38)
[2020-05-24] MEDS: Insulin LISPRO 300 UNITS/3 ML VIAL SUBQ SCH ×4 (08:10→20:38)
[2020-05-24] MEDS: Furosemide 20 MG TABLET PO SCH (08:10)
[2020-05-24] MEDS: Dexamethasone Sodium Phos/PF 10 MG/ML VIAL IVP SCH (08:10)
[2020-05-24] MEDS: Acetaminophen 325 MG TABLET PO PRN (17:38)
[2020-05-25] MEDS: Doxycycline 100 MG in 0.9 % Sodium Chloride Mini Bag 100 ML IVPB SCH ×2 (05:53→17:32)
[2020-05-25] MEDS: *HR* Enoxaparin 40 MG/0.4 ML SYRINGE SQ SCH (05:54)
[2020-05-25 05:55] LABS: Basophils % 0.1 %; Hematocrit 38.1 % (37.5-50.1); Hemoglobin 10.4 g/dL (12.9-16.9); Immature Granulocytes % 1.6 % (0-4); Lymphocytes # 0.4 K/mcL (0.6-4.6); Lymphocytes % 2.2 %; Mean Corpuscular HGB Conc 27.3 g/dL (31.6-35.5); Mean Corpuscular Hemoglobin 18.2 pg (28.0-33.3); Mean Corpuscular Volume 66.7 fL (83.0-100.0); Monocytes # 0.6 K/mcL (0.0-1.3); Monocytes % 3.4 %; Neutrophils # 16.6 K/mcL (1.6-8.9); Nucleated Red Blood Cells 0.8 /100 WBC (0); Platelet Count 135 K/mcL (140-400); Red Blood Count 5.71 M/mcL (4.19-5.50); Red Cell Distribution Width 29.1 % (11.5-14.5); Segmented Neutrophils % 92.7 %; White Blood Count 17.9 K/mcL (4.3-11.1)
[2020-05-25 06:03] LABS: Fibrinogen 358 mg/dL (169-393)
[2020-05-25 06:05] LABS: D-Dimer 880 ng/mLFEU (0-500)
[2020-05-25 06:15] LABS: BUN/Creatinine Ratio 51 (6-26); Blood Urea Nitrogen 36 mg/dL (8-23); Calcium 8.8 mg/dL (8.6-10.3); Carbon Dioxide 31 mEq/L (23-29); Chloride 103 mEq/L (98-107); Glucose 126 mg/dL (70-105); Lactate Dehydrogenase 449 Units/L (140-271); Magnesium 2.3 mg/dL (1.6-2.6); Osmolality,Calculated 300 (280-300); Potassium 4.2 mEq/L (3.5-5.1); Sodium 140 mEq/L (136-145); eGFR For African Americans > 60 (> 60); eGFR For Non-African Americans > 60 (> 60)
[2020-05-25 06:27] LABS: Anisocytosis 1+ (Not Present); Hypochromasia Present (Not Present); Platelet Estimate Slight Decrease (Normal)
[2020-05-25 06:32] LABS: Ferritin 110 ng/mL (20-250)
[2020-05-25] MEDS: Aspirin Enteric Coated 81 MG Tablet PO SCH (07:19)
[2020-05-25] MEDS: ALPRAZolam 0.5 MG TABLET PO SCH ×4 (07:19→20:49)
[2020-05-25] MEDS: lisinopriL 20 MG TABLET PO SCH (07:19)
[2020-05-25] MEDS: Furosemide 20 MG TABLET PO SCH (07:19)
[2020-05-25] MEDS: amLODIPine 5 MG TABLET PO SCH (07:19)
[2020-05-25] MEDS: Nicotine 14 MG PATCH.TD24 TD SCH (07:20)
[2020-05-25] MEDS: Dexamethasone Sodium Phos/PF 10 MG/ML VIAL IVP SCH (07:20)
[2020-05-25] MEDS: Insulin LISPRO 300 UNITS/3 ML VIAL SUBQ SCH ×4 (07:30→20:38)
[2020-05-25] MEDS: Budesonide/Formoterol 160/4.5 1 PUFF INH IH SCH ×2 (08:13→19:54)
[2020-05-25] MEDS ORDERED: Isovue-370 500 ML BOTTLE IVP ONE (13:52)
[2020-05-26 03:59] LABS: ABG Base Excess 6 mEq/L (-2 to 3); ABG HCO3 31 mEq/L (21-27); ABG Oxygen Saturation 89 % (95-98); ABG PCO2 47 mmHg (35-45); ABG PH 7.43 pH Units (7.32-7.45); ABG PO2 56 mmHg (85-104); ABG TCO2 32 mEq/L (20-26)
[2020-05-26 04:17] LABS: Red Cell Distribution Width 28.9 % (11.5-14.5)
[2020-05-26 04:19] LABS: Basophils % 0.2 %; Hematocrit 34.3 % (37.5-50.1); Hemoglobin 9.4 g/dL (12.9-16.9); Immature Granulocytes % 1.5 % (0-4); Immature Platelets 17.6 % (1.1-6.1); Lymphocytes # 0.6 K/mcL (0.6-4.6); Lymphocytes % 3.4 %; Mean Corpuscular HGB Conc 27.4 g/dL (31.6-35.5); Mean Corpuscular Hemoglobin 17.9 pg (28.0-33.3); Mean Corpuscular Volume 65.3 fL (83.0-100.0); Monocytes # 0.7 K/mcL (0.0-1.3); Monocytes % 4.3 %; Neutrophils # 14.8 K/mcL (1.6-8.9); Nucleated Red Blood Cells 0.4 /100 WBC (0); Platelet Count 132 K/mcL (140-400); Red Blood Count 5.25 M/mcL (4.19-5.50); Segmented Neutrophils % 90.6 %; White Blood Count 16.3 K/mcL (4.3-11.1)
[2020-05-26 04:32] LABS: BUN/Creatinine Ratio 53 (6-26); Blood Urea Nitrogen 38 mg/dL (8-23); Calcium 8.3 mg/dL (8.6-10.3); Carbon Dioxide 29 mEq/L (23-29); Chloride 105 mEq/L (98-107); Glucose 111 mg/dL (70-105); Magnesium 2.4 mg/dL (1.6-2.6); Osmolality,Calculated 302 (280-300); Phosphorous 4.4 mg/dL (2.7-4.5); Potassium 4.4 mEq/L (3.5-5.1); Sodium 141 mEq/L (136-145); eGFR For African Americans > 60 (> 60); eGFR For Non-African Americans > 60 (> 60)
[2020-05-26 05:00] LABS: Anisocytosis 1+ (Not Present); Hypochromasia Present (Not Present); Platelet Estimate Slight Decrease (Normal); Poikilocytosis 1+ (Not Present)
[2020-05-26] MEDS: Doxycycline 100 MG in 0.9 % Sodium Chloride Mini Bag 100 ML IVPB SCH ×2 (05:52→17:17)
[2020-05-26] MEDS: *HR* Enoxaparin 40 MG/0.4 ML SYRINGE SQ SCH (05:52)
[2020-05-26] MEDS: Budesonide/Formoterol 160/4.5 1 PUFF INH IH SCH (07:50)
[2020-05-26] MEDS: ALPRAZolam 0.5 MG TABLET PO SCH ×4 (08:04→21:03)
[2020-05-26] MEDS: amLODIPine 5 MG TABLET PO SCH (08:04)
[2020-05-26] MEDS: lisinopriL 20 MG TABLET PO SCH (08:04)
[2020-05-26] MEDS: Aspirin Enteric Coated 81 MG Tablet PO SCH (08:04)
[2020-05-26] MEDS: Dexamethasone Sodium Phos/PF 10 MG/ML VIAL IVP SCH (08:05)
[2020-05-26] MEDS: Insulin LISPRO 300 UNITS/3 ML VIAL SUBQ SCH ×4 (08:05→21:03)
[2020-05-26] MEDS: Nicotine 14 MG PATCH.TD24 TD SCH (08:05)
[2020-05-26] MEDS ORDERED: Furosemide 40 MG/4 ML VIAL IVP SCH (09:00)
[2020-05-26] MEDS: Loratadine 10 MG TABLET PO SCH (10:41)
[2020-05-26] MEDS: Ipratropium 1 PUFF INHALER IH PRN (19:52)
[2020-05-26] MEDS: Furosemide 40 MG/4 ML VIAL IVP SCH (21:03)
[2020-05-27] MEDS: Melatonin 3 MG TABLET PO PRN ×2 (00:19→21:35)
[2020-05-27 02:36] LABS: Fibrinogen 370 mg/dL (169-393)
[2020-05-27 02:44] LABS: BUN/Creatinine Ratio 60 (6-26); Blood Urea Nitrogen 49 mg/dL (8-23); Calcium 8.4 mg/dL (8.6-10.3); Carbon Dioxide 30 mEq/L (23-29); Chloride 103 mEq/L (98-107); Glucose 161 mg/dL (70-105); Magnesium 2.2 mg/dL (1.6-2.6); Osmolality,Calculated 306 (280-300); Phosphorous 3.9 mg/dL (2.7-4.5); Potassium 4.2 mEq/L (3.5-5.1); Sodium 140 mEq/L (136-145); eGFR For African Americans > 60 (> 60); eGFR For Non-African Americans > 60 (> 60)
[2020-05-27 02:45] LABS: D-Dimer 1448 ng/mLFEU (0-500)
[2020-05-27 02:50] LABS: Basophils % 0.1 %; Immature Granulocytes % 1.7 % (0-4); Lymphocytes % 3.4 %; Nucleated Red Blood Cells 0.2 /100 WBC (0)
[2020-05-27 02:52] LABS: Hematocrit 32.1 % (37.5-50.1); Immature Platelets 18.5 % (1.1-6.1); Lymphocytes # 0.6 K/mcL (0.6-4.6); Mean Corpuscular Hemoglobin 18.2 pg (28.0-33.3); Monocytes # 0.7 K/mcL (0.0-1.3); Monocytes % 3.8 %; Platelet Count 121 K/mcL (140-400); Red Blood Count 4.94 M/mcL (4.19-5.50); Red Cell Distribution Width 28.6 % (11.5-14.5); White Blood Count 17.5 K/mcL (4.3-11.1)
[2020-05-27 03:29] LABS: Neutrophils # 15.9 K/mcL (1.6-8.9)
[2020-05-27 03:38] LABS: Anisocytosis 1+ (Not Present); Hypochromasia Present (Not Present); Poikilocytosis 1+ (Not Present); Polychromasia 1+ (Not Present)
[2020-05-27 03:40] LABS: Basophilic Stippling 1+ (Not Present); Platelet Estimate Normal (Normal); Target Cells 1+ (Not Present)
[2020-05-27] MEDS: Ipratropium 1 PUFF INHALER IH PRN (03:50)
[2020-05-27] MEDS: Doxycycline 100 MG in 0.9 % Sodium Chloride Mini Bag 100 ML IVPB SCH (05:36)
[2020-05-27] MEDS: *HR* Enoxaparin 40 MG/0.4 ML SYRINGE SQ SCH (05:37)
[2020-05-27] MEDS: Insulin LISPRO 300 UNITS/3 ML VIAL SUBQ SCH ×4 (07:32→21:48)
[2020-05-27] MEDS ORDERED: Azithromycin 500 MG in 0.9 % Sodium Chloride 250 ML IVPB SCH (08:00)
[2020-05-27] MEDS: Lactobacillus 1 EACH CAP.SPRINK PO SCH ×2 (08:54→21:35)
[2020-05-27] MEDS: Aspirin Enteric Coated 81 MG Tablet PO SCH (08:54)
[2020-05-27] MEDS: lisinopriL 20 MG TABLET PO SCH (08:54)
[2020-05-27] MEDS: ALPRAZolam 0.5 MG TABLET PO SCH ×4 (08:54→21:34)
[2020-05-27] MEDS: Loratadine 10 MG TABLET PO SCH (08:54)
[2020-05-27] MEDS: amLODIPine 5 MG TABLET PO SCH (08:55)
[2020-05-27] MEDS: Nicotine 14 MG PATCH.TD24 TD SCH (08:55)
[2020-05-27] MEDS: Dexamethasone Sodium Phos/PF 10 MG/ML VIAL IVP SCH (08:56)
[2020-05-27] MEDS: Furosemide 40 MG/4 ML VIAL IVP SCH ×2 (08:56→21:35)
[2020-05-27] MEDS: Cefepime HCl 2,000 MG in Water for inj. (sterile) 20 ML IVP SCH ×2 (13:30→21:33)
[2020-05-28 01:08] LABS: VBG HCO3 31 mEq/L (21-27); VBG PCO2 38 mmHg (41-51); VBG PH 7.52 pH Units (7.32-7.42); VBG PO2 86 mmHg (25-50)
[2020-05-28 01:16] LABS: Basophils % 0.1 %; Lymphocytes % 3.7 %
[2020-05-28 01:18] LABS: Hematocrit 31.1 % (37.5-50.1); Hemoglobin 8.6 g/dL (12.9-16.9); Immature Granulocytes % 1.3 % (0-4); Immature Platelets 17.5 % (1.1-6.1); Lymphocytes # 0.6 K/mcL (0.6-4.6); Mean Corpuscular HGB Conc 27.7 g/dL (31.6-35.5); Mean Corpuscular Hemoglobin 18.5 pg (28.0-33.3); Mean Corpuscular Volume 66.7 fL (83.0-100.0); Monocytes # 0.6 K/mcL (0.0-1.3); Monocytes % 3.7 %; Neutrophils # 14.4 K/mcL (1.6-8.9); Platelet Count 108 K/mcL (140-400); Red Blood Count 4.66 M/mcL (4.19-5.50); Red Cell Distribution Width 28.9 % (11.5-14.5); Segmented Neutrophils % 91.2 %; White Blood Count 15.8 K/mcL (4.3-11.1)
[2020-05-28 01:28] LABS: BUN/Creatinine Ratio 79 (6-26); Blood Urea Nitrogen 45 mg/dL (8-23); Calcium 8.4 mg/dL (8.6-10.3); Carbon Dioxide 31 mEq/L (23-29); Chloride 102 mEq/L (98-107); Glucose 160 mg/dL (70-105); Magnesium 2.2 mg/dL (1.6-2.6); Osmolality,Calculated 301 (280-300); Potassium 4.2 mEq/L (3.5-5.1); Sodium 138 mEq/L (136-145); eGFR For African Americans > 60 (> 60); eGFR For Non-African Americans > 60 (> 60)
[2020-05-28 01:29] LABS: Fibrinogen 409 mg/dL (169-393)
[2020-05-28 01:33] LABS: D-Dimer 1817 ng/mLFEU (0-500)
[2020-05-28 02:07] LABS: Anisocytosis 1+ (Not Present); Hypochromasia Present (Not Present); Platelet Estimate Decreased (Normal)
[2020-05-28] MEDS: Cefepime HCl 2,000 MG in Water for inj. (sterile) 20 ML IVP SCH ×2 (04:05→11:25)
[2020-05-28] MEDS: *HR* Enoxaparin 40 MG/0.4 ML SYRINGE SQ SCH (05:45)
[2020-05-28] MEDS: Insulin LISPRO 300 UNITS/3 ML VIAL SUBQ SCH ×3 (08:43→16:25)
[2020-05-28] MEDS: Loratadine 10 MG TABLET PO SCH (08:49)
[2020-05-28] MEDS: Aspirin Enteric Coated 81 MG Tablet PO SCH (08:49)
[2020-05-28] MEDS: Lactobacillus 1 EACH CAP.SPRINK PO SCH (08:49)
[2020-05-28] MEDS: lisinopriL 20 MG TABLET PO SCH (08:49)
[2020-05-28] MEDS: ALPRAZolam 0.5 MG TABLET PO SCH ×3 (08:50→16:24)
[2020-05-28] MEDS: Furosemide 40 MG/4 ML VIAL IVP SCH (08:50)
[2020-05-28] MEDS: Nicotine 14 MG PATCH.TD24 TD SCH (08:50)
[2020-05-28] MEDS: Dexamethasone Sodium Phos/PF 10 MG/ML VIAL IVP SCH (08:50)
[2020-05-29] MEDS: Lactobacillus 1 EACH CAP.SPRINK PO SCH ×3 (00:26→19:53)
[2020-05-29] MEDS: ALPRAZolam 0.5 MG TABLET PO SCH ×5 (00:26→19:53)
[2020-05-29] MEDS: Cefepime HCl 2,000 MG in Water for inj. (sterile) 20 ML IVP SCH ×4 (00:27→19:31)
[2020-05-29] MEDS: Insulin LISPRO 300 UNITS/3 ML VIAL SUBQ SCH ×5 (00:50→20:07)
[2020-05-29] MEDS: *HR* Enoxaparin 40 MG/0.4 ML SYRINGE SQ SCH (06:23)
[2020-05-29 07:11] LABS: Hematocrit 28.7 % (37.5-50.1); Hemoglobin 7.8 g/dL (12.9-16.9); Mean Corpuscular HGB Conc 27.2 g/dL (31.6-35.5); Mean Corpuscular Hemoglobin 18.5 pg (28.0-33.3); Mean Corpuscular Volume 68.2 fL (83.0-100.0); Red Blood Count 4.21 M/mcL (4.19-5.50); Red Cell Distribution Width 28.9 % (11.5-14.5); White Blood Count 15.4 K/mcL (4.3-11.1)
[2020-05-29 07:13] LABS: Platelet Count 71 K/mcL (140-400)
[2020-05-29 07:28] LABS: BUN/Creatinine Ratio 65 (6-26); Blood Urea Nitrogen 41 mg/dL (8-23); Calcium 8.6 mg/dL (8.6-10.3); Carbon Dioxide 32 mEq/L (23-29); Chloride 101 mEq/L (98-107); Glucose 102 mg/dL (70-105); Magnesium 2.2 mg/dL (1.6-2.6); Osmolality,Calculated 294 (280-300); Potassium 4.5 mEq/L (3.5-5.1); Sodium 137 mEq/L (136-145); eGFR For African Americans > 60 (> 60); eGFR For Non-African Americans > 60 (> 60)
[2020-05-29 07:43] LABS: Anisocytosis 1+ (Not Present); Hypochromasia Present (Not Present); Lymphocytes # 0.6 K/mcL (0.6-4.6); Neutrophils # 14.8 K/mcL (1.6-8.9)
[2020-05-29 07:44] LABS: Platelet Estimate Slight Decrease (Normal)
[2020-05-29] MEDS: Nicotine 14 MG PATCH.TD24 TD SCH (10:15)
[2020-05-29] MEDS: Loratadine 10 MG TABLET PO SCH (10:18)
[2020-05-29] MEDS: Aspirin Enteric Coated 81 MG Tablet PO SCH (10:18)
[2020-05-29] MEDS: Dexamethasone Sodium Phos/PF 10 MG/ML VIAL IVP SCH ×2 (12:32→18:48)
[2020-05-29] MEDS: Acetaminophen 325 MG TABLET PO PRN (19:53)
[2020-05-29] MEDS ORDERED: Melatonin 3 MG TABLET PO ONE (21:44)
[2020-05-30 03:30] LABS: Basophils % 0.1 %; Lymphocytes % 3.9 %
[2020-05-30 03:31] LABS: Hematocrit 28.2 % (37.5-50.1); Hemoglobin 7.6 g/dL (12.9-16.9); Immature Granulocytes % 1.5 % (0-4); Immature Platelets 19.2 % (1.1-6.1); Lymphocytes # 0.6 K/mcL (0.6-4.6); Mean Corpuscular Hemoglobin 18.1 pg (28.0-33.3); Mean Corpuscular Volume 67.3 fL (83.0-100.0); Monocytes # 0.3 K/mcL (0.0-1.3); Monocytes % 2.3 %; Red Blood Count 4.19 M/mcL (4.19-5.50); Red Cell Distribution Width 29.2 % (11.5-14.5); Segmented Neutrophils % 92.2 %; White Blood Count 14.7 K/mcL (4.3-11.1)
[2020-05-30 03:48] LABS: BUN/Creatinine Ratio 63 (6-26); Blood Urea Nitrogen 40 mg/dL (8-23); Calcium 8.5 mg/dL (8.6-10.3); Carbon Dioxide 32 mEq/L (23-29); Chloride 101 mEq/L (98-107); Glucose 111 mg/dL (70-105); Magnesium 2.3 mg/dL (1.6-2.6); Osmolality,Calculated 294 (280-300); Potassium 4.7 mEq/L (3.5-5.1); Sodium 137 mEq/L (136-145); eGFR For African Americans > 60 (> 60); eGFR For Non-African Americans > 60 (> 60)
[2020-05-30 04:11] LABS: Neutrophils # 13.6 K/mcL (1.6-8.9); Platelet Count 97 K/mcL (140-400)
[2020-05-30] MEDS: Cefepime HCl 2,000 MG in Water for inj. (sterile) 20 ML IVP SCH ×3 (04:44→21:33)
[2020-05-30 04:46] LABS: Anisocytosis 2+ (Not Present); Hypochromasia Present (Not Present); Platelet Estimate Decreased (Normal)
[2020-05-30] MEDS: *HR* Enoxaparin 40 MG/0.4 ML SYRINGE SQ SCH (04:54)
[2020-05-30] MEDS ORDERED: Dexamethasone Sodium Phos/PF 10 MG/ML VIAL IVP SCH (09:00)
[2020-05-30] MEDS: Insulin LISPRO 300 UNITS/3 ML VIAL SUBQ SCH ×4 (10:21→21:34)
[2020-05-30] MEDS: Aspirin Enteric Coated 81 MG Tablet PO SCH (10:38)
[2020-05-30] MEDS: Loratadine 10 MG TABLET PO SCH (10:38)
[2020-05-30] MEDS: lisinopriL 10 MG TABLET PO SCH (10:38)
[2020-05-30] MEDS: Lactobacillus 1 EACH CAP.SPRINK PO SCH ×2 (10:38→21:31)
[2020-05-30] MEDS: Dexamethasone Sodium Phos/PF 10 MG/ML VIAL IVP SCH (10:38)
[2020-05-30] MEDS: Nicotine 14 MG PATCH.TD24 TD SCH (10:39)
[2020-05-30] MEDS: ALPRAZolam 0.5 MG TABLET PO SCH ×4 (10:39→21:31)
[2020-05-30] MEDS: Pantoprazole 40 MG VIAL IVP SCH (17:23)
[2020-05-30] MEDS: Melatonin 3 MG TABLET PO PRN (21:31)
[2020-05-31] MEDS: Cefepime HCl 2,000 MG in Water for inj. (sterile) 20 ML IVP SCH ×3 (04:22→20:18)
[2020-05-31] MEDS: Pantoprazole 40 MG VIAL IVP SCH ×2 (05:27→16:55)
[2020-05-31] MEDS: *HR* Enoxaparin 40 MG/0.4 ML SYRINGE SQ SCH (05:27)
[2020-05-31] MEDS: Dexamethasone Sodium Phos/PF 10 MG/ML VIAL IVP SCH ×2 (05:44→10:41)
[2020-05-31] MEDS: Insulin LISPRO 300 UNITS/3 ML VIAL SUBQ SCH ×4 (10:15→21:22)
[2020-05-31] MEDS: ALPRAZolam 0.5 MG TABLET PO SCH ×4 (10:39→20:19)
[2020-05-31] MEDS: lisinopriL 10 MG TABLET PO SCH (10:39)
[2020-05-31] MEDS: Aspirin Enteric Coated 81 MG Tablet PO SCH (10:39)
[2020-05-31] MEDS: Lactobacillus 1 EACH CAP.SPRINK PO SCH ×2 (10:39→20:19)
[2020-05-31] MEDS: Loratadine 10 MG TABLET PO SCH (10:39)
[2020-05-31] MEDS: Nicotine 14 MG PATCH.TD24 TD SCH (10:42)
[2020-05-31 14:28] LABS: Alanine Aminotransferase 53 Units/L (7-52); Albumin 2.5 g/dL (3.5-5.7); Albumin/Globulin Ratio 0.7 (1.1-2.2); Alkaline Phosphatase 119 Units/L (34-104); Aspartate Amino Transferase 32 Units/L (13-39); BUN/Creatinine Ratio 52 (6-26); Bilirubin,Direct 0.3 mg/dL (0.0-0.2); Bilirubin,Indirect 0.5 mg/dL (0.0-1.0); Bilirubin,Total 0.8 mg/dL (0.3-1.0); Blood Urea Nitrogen 33 mg/dL (8-23); Calcium 8.4 mg/dL (8.6-10.3); Carbon Dioxide 30 mEq/L (23-29); Chloride 99 mEq/L (98-107); Globulin 3.7 g/dL (2.4-3.5); Glucose 109 mg/dL (70-105); Hematocrit 29.4 % (37.5-50.1); Hemoglobin 7.9 g/dL (12.9-16.9); Immature Granulocytes % 1.6 % (0-4); Magnesium 2.2 mg/dL (1.6-2.6); Mean Corpuscular HGB Conc 26.9 g/dL (31.6-35.5); Mean Corpuscular Hemoglobin 18.5 pg (28.0-33.3); Mean Corpuscular Volume 68.7 fL (83.0-100.0); Osmolality,Calculated 290 (280-300); Phosphorous 3.6 mg/dL (2.7-4.5); Potassium 4.9 mEq/L (3.5-5.1); Red Blood Count 4.28 M/mcL (4.19-5.50); Sodium 136 mEq/L (136-145); Total Protein 6.2 g/dL (6.4-8.9); Vancomycin,Trough 12 mcg/mL (5-10); eGFR For African Americans > 60 (> 60); eGFR For Non-African Americans > 60 (> 60)
[2020-05-31 14:30] LABS: Basophils % 0.2 %; Eosinophils % 0.1 %; Immature Platelets 24.5 % (1.1-6.1); Lymphocytes # 0.4 K/mcL (0.6-4.6); Lymphocytes % 1.7 %; Monocytes # 0.4 K/mcL (0.0-1.3); Monocytes % 1.6 %; Neutrophils # 21.7 K/mcL (1.6-8.9); Red Cell Distribution Width 29.9 % (11.5-14.5); Segmented Neutrophils % 94.8 %; White Blood Count 22.9 K/mcL (4.3-11.1)
[2020-05-31 14:47] LABS: Fibrinogen 358 mg/dL (169-393)
[2020-05-31 15:04] LABS: D-Dimer 18489 ng/mLFEU (0-500)
[2020-05-31 15:48] LABS: Basophils # 0.1 K/mcL (0.0-0.2); Platelet Count 93 K/mcL (140-400)
[2020-05-31 15:51] LABS: Anisocytosis 1+ (Not Present); Hypochromasia Present (Not Present); Microcytosis Present (Not Present); Ovalocytes 1+ (Not Present)
[2020-05-31 15:52] LABS: Platelet Estimate Decreased (Normal)
[2020-05-31] MEDS ORDERED: Isovue-370 500 ML BOTTLE IVP ONE (15:53)
[2020-05-31] MEDS: Melatonin 3 MG TABLET PO PRN (21:53)
[2020-05-31] MEDS: *HR* Enoxaparin 60 MG/0.6 ML SYRINGE SQ SCH (21:54)
[2020-06-01] MEDS: Melatonin 3 MG TABLET PO PRN ×2 (00:36→22:15)
[2020-06-01] MEDS: Cefepime HCl 2,000 MG in Water for inj. (sterile) 20 ML IVP SCH ×2 (03:15→12:28)
[2020-06-01 04:30] LABS: Basophils % 0.1 %; Eosinophils % 0.1 %; Hemoglobin 7.6 g/dL (12.9-16.9)
[2020-06-01 04:32] LABS: Hematocrit 27.6 % (37.5-50.1); Immature Granulocytes % 1.7 % (0-4); Immature Platelets 19.8 % (1.1-6.1); Lymphocytes % 2.6 %; Mean Corpuscular HGB Conc 27.5 g/dL (31.6-35.5); Mean Corpuscular Hemoglobin 18.7 pg (28.0-33.3); Monocytes # 0.3 K/mcL (0.0-1.3); Neutrophils # 16.1 K/mcL (1.6-8.9); Platelet Count 103 K/mcL (140-400); Red Blood Count 4.06 M/mcL (4.19-5.50); Segmented Neutrophils % 93.5 %; White Blood Count 17.2 K/mcL (4.3-11.1)
[2020-06-01 04:42] LABS: Fibrinogen 303 mg/dL (169-393)
[2020-06-01 04:51] LABS: Alanine Aminotransferase 51 Units/L (7-52); Albumin 2.5 g/dL (3.5-5.7); Albumin/Globulin Ratio 0.7 (1.1-2.2); Alkaline Phosphatase 132 Units/L (34-104); Aspartate Amino Transferase 31 Units/L (13-39); BUN/Creatinine Ratio 56 (6-26); Bilirubin,Direct 0.2 mg/dL (0.0-0.2); Bilirubin,Indirect 0.5 mg/dL (0.0-1.0); Bilirubin,Total 0.7 mg/dL (0.3-1.0); Blood Urea Nitrogen 33 mg/dL (8-23); Calcium 8.5 mg/dL (8.6-10.3); Carbon Dioxide 27 mEq/L (23-29); Chloride 100 mEq/L (98-107); Globulin 3.7 g/dL (2.4-3.5); Glucose 84 mg/dL (70-105); Magnesium 2.1 mg/dL (1.6-2.6); Osmolality,Calculated 284 (280-300); Potassium 4.7 mEq/L (3.5-5.1); Sodium 134 mEq/L (136-145); Total Protein 6.2 g/dL (6.4-8.9); eGFR For African Americans > 60 (> 60); eGFR For Non-African Americans > 60 (> 60)
[2020-06-01 05:25] LABS: D-Dimer 12084 ng/mLFEU (0-500)
[2020-06-01] MEDS: Pantoprazole 40 MG VIAL IVP SCH ×2 (05:40→20:47)
[2020-06-01 05:43] LABS: Lymphocytes # 0.5 K/mcL (0.6-4.6)
[2020-06-01 06:27] LABS: Anisocytosis 2+ (Not Present); Hypochromasia Present (Not Present); Poikilocytosis 1+ (Not Present); Polychromasia 1+ (Not Present)
[2020-06-01 06:28] LABS: Platelet Estimate Slight Decrease (Normal)
[2020-06-01] MEDS: Insulin LISPRO 300 UNITS/3 ML VIAL SUBQ SCH ×4 (09:28→20:48)
[2020-06-01] MEDS: Loratadine 10 MG TABLET PO SCH (09:39)
[2020-06-01] MEDS: ALPRAZolam 0.5 MG TABLET PO SCH ×4 (09:39→21:43)
[2020-06-01] MEDS: Dexamethasone Sodium Phos/PF 10 MG/ML VIAL IVP SCH (09:39)
[2020-06-01] MEDS: lisinopriL 10 MG TABLET PO SCH (09:39)
[2020-06-01] MEDS: Nicotine 14 MG PATCH.TD24 TD SCH (09:39)
[2020-06-01] MEDS: Aspirin Enteric Coated 81 MG Tablet PO SCH (09:40)
[2020-06-01] MEDS: *HR* Enoxaparin 60 MG/0.6 ML SYRINGE SQ SCH ×2 (09:40→21:46)
[2020-06-01] MEDS: Lactobacillus 1 EACH CAP.SPRINK PO SCH ×2 (09:40→21:44)
[2020-06-01] MEDS: Piperacillin/Tazobactam 3.375 GM in 0.9 % Sodium Chloride Mini Bag 100 ML IVPB SCH (21:44)
[2020-06-02 04:58] LABS: Basophils % 0.1 %; Eosinophils % 0.1 %; Hematocrit 26.1 % (37.5-50.1); Hemoglobin 7.3 g/dL (12.9-16.9); Immature Granulocytes % 1.3 % (0-4); Immature Platelets 16.8 % (1.1-6.1); Lymphocytes # 0.5 K/mcL (0.6-4.6); Lymphocytes % 3.2 %; Mean Corpuscular Hemoglobin 19.4 pg (28.0-33.3); Mean Corpuscular Volume 69.2 fL (83.0-100.0); Monocytes # 0.3 K/mcL (0.0-1.3); Monocytes % 1.9 %; Platelet Count 121 K/mcL (140-400); Red Blood Count 3.77 M/mcL (4.19-5.50); Red Cell Distribution Width 30.6 % (11.5-14.5); Segmented Neutrophils % 93.4 %; White Blood Count 14.2 K/mcL (4.3-11.1)
[2020-06-02 05:00] LABS: Neutrophils # 13.3 K/mcL (1.6-8.9)
[2020-06-02 05:07] LABS: Fibrinogen 370 mg/dL (169-393)
[2020-06-02 05:10] LABS: D-Dimer 5825 ng/mLFEU (0-500)
[2020-06-02 05:16] LABS: Albumin 2.4 g/dL (3.5-5.7); Albumin/Globulin Ratio 0.6 (1.1-2.2); BUN/Creatinine Ratio 45 (6-26); Bilirubin,Direct 0.2 mg/dL (0.0-0.2); Bilirubin,Indirect 0.6 mg/dL (0.0-1.0); Bilirubin,Total 0.8 mg/dL (0.3-1.0); Blood Urea Nitrogen 35 mg/dL (8-23); Calcium 8.3 mg/dL (8.6-10.3); Carbon Dioxide 28 mEq/L (23-29); Chloride 101 mEq/L (98-107); Globulin 3.7 g/dL (2.4-3.5); Glucose 73 mg/dL (70-105); Magnesium 2.3 mg/dL (1.6-2.6); Osmolality,Calculated 289 (280-300); Phosphorous 5.1 mg/dL (2.7-4.5); Potassium 4.5 mEq/L (3.5-5.1); Sodium 136 mEq/L (136-145); Total Protein 6.1 g/dL (6.4-8.9); eGFR For African Americans > 60 (> 60); eGFR For Non-African Americans > 60 (> 60)
[2020-06-02] MEDS: Piperacillin/Tazobactam 3.375 GM in 0.9 % Sodium Chloride Mini Bag 100 ML IVPB SCH ×3 (05:18→23:56)
[2020-06-02] MEDS: Pantoprazole 40 MG VIAL IVP SCH ×2 (05:20→17:29)
[2020-06-02 05:30] LABS: Anisocytosis 2+ (Not Present); Hypochromasia Present (Not Present); Microcytosis Present (Not Present); Platelet Estimate Slight Decrease (Normal)
[2020-06-02 05:31] LABS: Poikilocytosis 1+ (Not Present)
[2020-06-02] MEDS: Insulin LISPRO 300 UNITS/3 ML VIAL SUBQ SCH ×4 (07:45→21:46)
[2020-06-02] MEDS: Dexamethasone Sodium Phos/PF 10 MG/ML VIAL IVP SCH (08:52)
[2020-06-02] MEDS: Lactobacillus 1 EACH CAP.SPRINK PO SCH ×2 (08:53→21:47)
[2020-06-02] MEDS: *HR* Enoxaparin 60 MG/0.6 ML SYRINGE SQ SCH ×2 (08:53→21:46)
[2020-06-02] MEDS: Loratadine 10 MG TABLET PO SCH (08:53)
[2020-06-02] MEDS: Aspirin Enteric Coated 81 MG Tablet PO SCH (08:53)
[2020-06-02] MEDS: lisinopriL 10 MG TABLET PO SCH (08:53)
[2020-06-02] MEDS: ALPRAZolam 0.5 MG TABLET PO SCH ×4 (08:53→21:47)
[2020-06-02] MEDS: Nicotine 14 MG PATCH.TD24 TD SCH (08:54)
[2020-06-02] MEDS ORDERED: Furosemide 40 MG/4 ML VIAL IVP ONE ×2 (15:20→21:00)
[2020-06-02] MEDS ORDERED: 0.9 % Sodium Chloride 250 ML ONE (20:52)
[2020-06-02] MEDS: Acetaminophen 325 MG TABLET PO PRN (22:00)
[2020-06-03] MEDS: Piperacillin/Tazobactam 3.375 GM in 0.9 % Sodium Chloride Mini Bag 100 ML IVPB SCH ×2 (03:56→12:17)
[2020-06-03] MEDS: Ipratropium 1 PUFF INHALER IH PRN (04:10)
[2020-06-03 05:18] LABS: Red Blood Count 5.11 M/mcL (4.19-5.50)
[2020-06-03 05:19] LABS: Hematocrit 36.7 % (37.5-50.1); Hemoglobin 10.1 g/dL (12.9-16.9); Immature Platelets 17.1 % (1.1-6.1); Mean Corpuscular HGB Conc 27.5 g/dL (31.6-35.5); Mean Corpuscular Hemoglobin 19.8 pg (28.0-33.3); Mean Corpuscular Volume 71.8 fL (83.0-100.0); Platelet Count 129 K/mcL (140-400); Red Cell Distribution Width 30.7 % (11.5-14.5); White Blood Count 15.5 K/mcL (4.3-11.1)
[2020-06-03 05:33] LABS: BUN/Creatinine Ratio 41 (6-26); Blood Urea Nitrogen 36 mg/dL (8-23); Calcium 8.2 mg/dL (8.6-10.3); Carbon Dioxide 30 mEq/L (23-29); Chloride 98 mEq/L (98-107); Glucose 78 mg/dL (70-105); Magnesium 2.4 mg/dL (1.6-2.6); Osmolality,Calculated 291 (280-300); Potassium 4.3 mEq/L (3.5-5.1); Sodium 137 mEq/L (136-145); eGFR For African Americans > 60 (> 60); eGFR For Non-African Americans > 60 (> 60)
[2020-06-03] MEDS: Pantoprazole 40 MG VIAL IVP SCH ×2 (05:41→18:08)
[2020-06-03] MEDS: Insulin LISPRO 300 UNITS/3 ML VIAL SUBQ SCH ×3 (08:09→16:27)
[2020-06-03] MEDS: Nicotine 14 MG PATCH.TD24 TD SCH (08:53)
[2020-06-03] MEDS: Aspirin Enteric Coated 81 MG Tablet PO SCH (08:54)
[2020-06-03] MEDS: ALPRAZolam 0.5 MG TABLET PO SCH ×2 (08:54→12:12)
[2020-06-03] MEDS: lisinopriL 10 MG TABLET PO SCH (08:54)
[2020-06-03] MEDS: Dexamethasone Sodium Phos/PF 10 MG/ML VIAL IVP SCH (08:54)
[2020-06-03] MEDS: Lactobacillus 1 EACH CAP.SPRINK PO SCH (08:54)
[2020-06-03] MEDS: Loratadine 10 MG TABLET PO SCH (08:54)
[2020-06-03 11:30] VITALS: O2SAT 89
[2020-06-03 16:16] VITALS: BP 101/64; PULSE 111; TEMP 98.4
[2020-06-03] MEDS: *HR* LORazepam 2 MG/ML VIAL IVP PRN ×2 (18:07→20:17)
[2020-06-03] MEDS: Morphine Sulfate Oral CONC 10 MG/0.5 ML ORAL.SYG SL PRN ×3 (18:07→21:09)
[2020-06-03] MEDS: *HR* FentaNYL (PF) 100 MCG/2 ML VIAL IVP PRN ×2 (18:30→20:17)
[2020-06-04] MEDS ORDERED: *HR* Enoxaparin 40 MG/0.4 ML SYRINGE SQ SCH (06:00)
== END 2020-06-03 23:00 | disposition expired | DRG 177 ==
LOC: 2NENU 09:35 → EMEROOARM 09:35 → SUATTDRO 15:15 → 2NENU 15:27
PROVIDERS: ADMIT Internal Medicine; ATTEND Internal Medicine